=== PATIENT | male | born 1985 | race Caucasian/White ===

== ENCOUNTER 2025-03-28 07:36 | Day surgery (SDC) | payer OTHER ==
[2025-03-26 12:12] VITALS: BMI 23.5
[2025-03-28] MEDS ORDERED: BUPIVACAINE HCL/EPINEPHRINE/PF 30 ML VIAL IJ ONE (07:44)
[2025-03-28] MEDS ORDERED: oxyCODONE HCL 5 MG TABLET PO PRN (08:16)
[2025-03-28] MEDS ORDERED: ONDANSETRON 4 MG/2 ML VIAL IVPUSH PRN ×2 (08:16→13:40)
[2025-03-28] MEDS ORDERED: PROPOFOL 20 ML ONE ×2 (08:20→10:14)
[2025-03-28] MEDS ORDERED: MIDAZOLAM HCL 2 MG/2 ML SINGLE DOSE VIAL ONE (08:20)
[2025-03-28] MEDS ORDERED: LACTATED RINGERS SOLUTION 1,000 ML IV SCH (08:30)
[2025-03-28] MEDS ORDERED: ONDANSETRON 4 MG/2 ML VIAL ONE (10:06)
[2025-03-28] MEDS ORDERED: KETOROLAC TROMETHAMINE 30 MG/1 ML VIAL ONE (10:06)
[2025-03-28] MEDS ORDERED: DEXAMETHASONE SOD PHOSPHATE 4 MG/1 ML VIAL ONE (10:06)
[2025-03-28] MEDS ORDERED: ceFAZolin SODIUM 1 GM VIAL ONE (10:06)
[2025-03-28] MEDS ORDERED: ACETAMINOPHEN INJECTION 100 ML ONE (10:41)
[2025-03-28] MEDS: ACETAMINOPHEN 1000 MG/100 ML BAG IVPB ONE (10:45)
[2025-03-28] MEDS ORDERED: oxyCODONE HCL 5 MG TABLET ONE (11:17)
[2025-03-28] MEDS: oxyCODONE HCL 5 MG TABLET PO ONE (11:20)
[2025-03-28 11:24] VITALS: RESP 16; TEMP 97.6
[2025-03-28 12:08] VITALS: BP 112/69; PULSE 48
[2025-03-28] MEDS ORDERED: MAGNESIUM HYDROX 2400MG/30ML ORAL SUSPENSION 30 ML CUP PO PRN (13:40)
[2025-03-28] MEDS ORDERED: MAG HYDROX/AL HYDROX/SIMETH 30 ML UNIT-DOSE CUP PO PRN (13:40)
[2025-03-28] MEDS ORDERED: SODIUM CHLORIDE 1,000 ML IV SCH (13:45)
[2025-03-28] MEDS ORDERED: CEFAZOLIN 2 GM/D5W 2 GRAM/50 ML ML IVPB SCH (19:00)
[2025-03-28] MEDS ORDERED: SENNOSIDES/DOCUSATE COMBO (SENNA PLUS) TABLET (UD) PO SCH (22:00)
[2025-03-28] MEDS ORDERED: ASPIRIN 81 MG CHEWABLE TABLETS PO SCH (22:00)
[2025-03-28] MEDS ORDERED: FAMOTIDINE 20 MG TABLET PO SCH (22:00)
[2025-03-28] MEDS ORDERED: ACETAMINOPHEN 1000 MG/100 ML BAG IVPB SCH (22:00)
[2025-03-28] MEDS ORDERED: DEXAMETHASONE 4 MG TABLET (FP) PO SCH (22:00)
[2025-03-29] MEDS ORDERED: ACETAMINOPHEN 500 MG TABLET (FP) PO SCH (14:30)
== END 2025-03-28 12:09 | disposition home or self-care (01) ==
LOC: FASU 07:36
PROVIDERS: ATTEND Orthopaedic Surgery
PROC: 0SSC04Z Reposition Right Knee Joint with Internal Fixation Device, Open Approach (ICD-10-PCS; principal; 2025-03-28 09:42)
DX: M25.361 Other instability, right knee (principal)
CPT/HCPCS: 27832; C1713; 73560-TC-RT-FY; 94760